=== PATIENT | female | born 2000 | race Two or more races ===

== ENCOUNTER → 2025-04-01 | Emergency (ER) | payer OTHER ==
[~2025-04-01] VITALS: Ht 177.8 cm; Wt 90.7 kg
[~2025-04-01] MED LIST: 0.9 % SODIUM CHLORIDE 1,000 ML IV STA; ONDANSETRON HCL 2 MG/ML VIAL IV STA; THIAMINE HCL 100 MG/ML 2 ML VIAL IV STA
[2025-04-01 05:58] LABS: BASO % 0.2 % (0.1-1.2); EOS # 0.01 (0.04-0.54); EOS % 0.1 % (0.7-7.0); HEMATOCRIT 40.3 % (34.1-44.9); HEMOGLOBIN 13.3 g/dL (11.2-15.7); LYMPH # 1.95 (1.18-3.74); LYMPH % 13.3 % (19.3-53.1); MEAN CORPUSCULAR HEMOGLOBIN 27.7 pg (25.6-32.2); MONO # 0.34 (0.24-0.82); MONO % 2.3 % (4.7-12.5); NEUT # 12.22 (1.56-6.13); NEUT % 83.4 % (34.0-71.1); PLATELET COUNT 267 K/uL (163-369); RED BLOOD COUNT 4.81 M/uL (3.93-5.22); RED CELL DISTRIBUTION WIDTH 12.5 % (11.6-14.4)
[2025-04-01 06:10] LABS: ALBUMIN 3.4 gm/dL (3.4-5.0); BILIRUBIN TOTAL 0.57 mg/dL (0.3-1.2); CALCIUM 7.8 mg/dL (8.5-10.1); CREATININE SERUM 0.45 mg/dL (0.55-1.02); GFR 169.76; GLOBULINA 3.7 G/DL (2.4-3.5); POTASSIUM 4.16 mEq/L (3.5-5.1); TOTAL PROTEIN 7.1 gm/dL (6.4-8.2)
== END | disposition home or self-care (01) ==
LOC: ER 04:09
DX: F10.129 Alcohol abuse with intoxication, unspecified (principal)